=== PATIENT | female | born 1950 | race Caucasian/White ===

== ENCOUNTER → 2020-09-21 10:03 | Outpatient (CLI) | payer MEDICARE, SELFPAY ==
--- NOTE | ~2020-09-21 | MM_ITS ---
EXAMINATION: MM screening andreea BI w brett HISTORY: Screening TECHNIQUE: Craniocaudal and mediolateral oblique 3-D tomosynthesis images were obtained and synthetic 2-D images were generated. CAD analysis was submitted and interpreted. COMPARISON: Comparison to multiple prior studies sequentially, with oldest reviewed study dated 05/04. BREAST PARENCHYMAL COMPOSITION: There are scattered areas of fibroglandular density. FINDINGS: Bilateral breast asymmetries are stable. There is no evidence of suspicious mass, calcifica tion, or architectural distortion to suggest malignancy in either breast. There has been no suspiciou s interval change. IMPRESSION: 1. No mammographic evidence of malignancy. 2. Recommend routine screening mammography in one year. BI-RADS Category 2: Benign finding(s). Reviewed, dictated and finalized at location A. TEGIC BUYER
== END ==
PROVIDERS: Visit Provider Nurse Practitioner Obstetrics & Gynecology
DX: Z12.31 Encounter for screening mammogram for malignant neoplasm of breast (principal)
CPT/HCPCS: 77063; 77067

== ENCOUNTER → 2021-08-15 09:49 | Outpatient (CLI) | payer MEDICARE, SELFPAY ==
--- NOTE | ~2021-08-15 | XR_ITS ---
EXAMINATION: XR chest 2V DATE: 08/15/2021 10:03 INDICATION: Cough, unspecified. COVID-19 positive 10 days ago. TECHNIQUE: Frontal and lateral views of the chest were obtained. COMPARISON: Chest 2 views 01/29/2018 FINDINGS: There is mild scarring at the lung apices. No pleural effusion or pneumothorax. The heart s ize is normal. IMPRESSION: 1. Stable mild scarring at the lung apices. Reviewed, dictated and finalized at location B. ATOR EXAMINER AND ADJUSTER
== END ==
PROVIDERS: PCP Family Medicine; Visit Provider Physician Assistant Medical
DX: R05.9 Cough, unspecified (principal); R91.8 Other nonspecific abnormal finding of lung field
CPT/HCPCS: 71046

== ENCOUNTER 2022-08-17 16:47 | Emergency (ER) | payer MEDICARE, SELFPAY ==
--- NOTE | ~2022-08-17 | CT_ITS ---
EXAMINATION: CT brain wo con DATE: 08/17/2022 17:47 INDICATION: Fall with head injury TECHNIQUE: Computed tomography (CT) of the head was performed without intravenous contrast. Sagittal and coronal reconstructions were performed. Automated exposure control and iterative reconstruction t echnique were employed. The dose-length product was 529.67 mGy-cm. COMPARISON: head CT dated 07/21/2017 FINDINGS: No fracture. No acute intracranial hemorrhage, acute infarction or abnormal extra axial fluid collect ion. There is mild scattered white matter hypoattenuation consistent with chronic small vessel ischem ic disease. Ventricles are normal and symmetric. No mass/mass effect. The orbits, paranasal sinuses and mastoid air cells are normal. IMPRESSION: 1. No fracture or acute intracranial process. 2. Mild scattered white matter hypoattenuation consistent with chronic small vessel ischemic disease. Reviewed, dictated and finalized at location A. ITY ASSURANCE CLERK IMPRESSION: 1. No fracture or acute intracranial process. 2. Mild scattered white matter hypoattenuation consistent with chronic small ve ssel ischemic disease.
[2022-08-17 16:52] VITALS: BP 146/55; PULSE 62; RESP 18; TEMP 35.8; O2SAT 100
--- NOTE | 2022-08-17 17:14 | ED.WOUNDLAC ---
HPI - Wound/Laceration General Chief Complaint: Wound/Laceration Stated Complaint: chin laceration Time Seen by Provider: 08/17/22 16:55 History of Present Illness HPI narrative: Patient is a 71-year-old female here for evaluation of a laceration to her chin. Patient states that she was going down the steps carrying several items when she slipped on the bottom 3 steps. She fell forward and struck her chin against the ground and struck her knee. She did not lose consciousness. She takes a daily baby aspirin. Complaining of knee pain and a laceration to the inside of her lip and chin. She has been able to walk. Her last tetanus booster was over 10 years ago. Related Data Home Medications Medication Instructions Recorded Confirmed aspirin 81 mg tablet,delayed 81 mg PO DAILY 06/22/19 10/23/21 release metoprolol succinate 50 mg 50 mg PO DAILY 06/22/19 10/23/21 tablet,extended release 24 hr atorvastatin 10 mg tablet 40 mg PO DAILY 05/29/21 10/23/21 cholecalciferol (vitamin D3) 50 50 mcg PO DAILY 05/29/21 10/23/21 mcg (2,000 unit) tablet mecobalamin (vitamin B12) 1,000 1,000 mcg PO DAILY 05/29/21 10/23/21 mcg chewable tablet Allergies Allergy/AdvReac Type Severity Reaction Status Date / Time No Known Allergies Allergy Verified 08/17/22 16:55 Review of Systems Review of Systems: Gen: Denies fevers or chills Eyes: Denies eye pain or visual change ENT: Denies congestion Respiratory: Denies shortness of breath or cough CV: Denies chest pain or palpitations GI: Denies abdominal pain nausea, emesis or diarrhea : denies burning, urgency, frequency or hematuria Musculoskeletal: reports knee pain Neuro: Denies numbness, tingling, weakness or focal weakness Skin: Reports laceration to lip and chin Except as documented, all other systems reviewed and negative PMFSH Past Medical History Medical History Acute right flank pain Lab test negative for COVID-19 virus 08.22.20 UTI (urinary tract infection), bacterial Surgical History Surgical History H/O lateral meniscus repair of left knee History of appendectomy History of hysterectomy Family History Family History Father Diabetes mellitus Social History Social History Second hand tobacco smoke exposure: No Alcohol intake: current Alcohol use details: Occasional Substance use: never Substance use type: does not use Gender identity (if verbalized by the patient): Female Spiritual care concerns: No Agree to blood products: Yes Exam Narrative: APPEARANCE: Well appearing, no pain in distress, well-nourished. Head: Normocephalic and atraumatic. EYES: PERRLA/EOMI, conjunctivae clear NOSE: No nasal drainage EARS: External ear normal in appearance THROAT: Oropharynx is clear. Mucous membranes are moist. NECK: Supple. No adenopathy, no masses. RESPIRATORY: Airway patent, respirations nonlabored. Clear to auscultation bilaterally, no rales, rhonchi, wheezing. CARDIOVASCULAR: Regular rate and rhythm without murmurs, rubs, or gallops. ABDOMINAL: Normoactive bowel sounds. Soft, nontender, nondistended. No rebound tenderness or guarding. MUSCULOSKELETAL: No bony tenderness to palpation of either knee. No deformity. No overlying ecchymosis or laceration. Extremities are warm and well-perfused. Moves all extremities well. No edema. NEURO: Normal speech. No focal neurologic deficits. SKIN: Patient has a 3 cm linear laceration to [id number] chin just inferior to her lower lip. She has a laceration to the dry vermilion border of her mid lower lip. She has an irregular, v shaped laceration to the wet vermilion border of the lower lip that is about 2 cm in length. PSYCHIATRIC: Normal affect/mood. Course Vital Signs Vital sig
[2022-08-17] MEDS: LIDOCAINE, EPINEPHRINE, TETRACAINE VISCOUS SOLN 3 ML TOPICAL (18:13)
[2022-08-17] MEDS: TETANUS,DIPHTHERIA,AC PERTUSSIS ADULT (0.5 ML) BOOSTRIX IM (18:13)
== END 2022-08-17 18:42 | disposition home or self-care (01) ==
PROVIDERS: Emergency Provider Physician Assistant; PCP Family Medicine
DX: S01.81XA Laceration without foreign body of other part of head, initial encounter (principal); S01.511A Laceration without foreign body of lip, initial encounter; Z23 Encounter for immunization; Z87.440 Personal history of urinary (tract) infections; Z90.710 Acquired absence of both cervix and uterus; Z79.82 Long term (current) use of aspirin; W10.9XXA Fall (on) (from) unspecified stairs and steps, initial encounter
CPT/HCPCS: 12014; 70450; 90471; 90715; 99284

== ENCOUNTER → 2022-09-18 14:17 | Outpatient (CLI) | payer MEDICARE, SELFPAY ==
--- NOTE | ~2022-09-18 | MM_ITS ---
EXAMINATION: MM screening andreea BI w brett HISTORY: Screening mammogram TECHNIQUE: Craniocaudal and mediolateral oblique 3-D tomosynthesis images were obtained and synthetic 2-D images were generated. CAD analysis was submitted and interpreted. COMPARISON: September 21, 2020, June 20, 2017, August 25, 2015 bilateral screening mammogram exam inations BREAST PARENCHYMAL COMPOSITION: There are scattered areas of fibroglandular density. FINDINGS: Stable fibroglandular asymmetry and a few benign calcifications are again noted. There is no evidence of suspicious mass, calcification, or architectural distortion to suggest malig gil in either breast. There has been no suspicious interval change. IMPRESSION: 1. No mammographic evidence of malignancy. 2. Recommend routine screening mammography in one year. BI-RADS Category 2: Benign finding(s). Prescription for acute hypertrophy posterior features and Reviewed, dictated and finalized at location A. VISION AND RADIO REPAIRER IMPRESSION: 1. No mammographic evidence of malignancy. 2. Recommend routine screening mammography in one year. BI-RADS Category 2: Benign finding(s). Prescription for acute hypertrophy poste rior features and
== END ==
PROVIDERS: PCP Family Medicine; Visit Provider Nurse Practitioner Obstetrics & Gynecology
DX: Z12.31 Encounter for screening mammogram for malignant neoplasm of breast (principal)
CPT/HCPCS: 77063; 77067

== ENCOUNTER 2023-08-08 17:03 | Emergency (ER) | payer MEDICARE, SELFPAY ==
[2023-08-08 17:14] VITALS: BP 115/59; PULSE 96; RESP 18; TEMP 36.6; O2SAT 100
--- NOTE | 2023-08-08 17:37 | ED.URI ---
HPI - URI/Sore Throat General Chief Complaint: Upper Respiratory Infection Stated Complaint: Cough/SOB Source: patient Mode of arrival: ambulatory Limitations: no limitations History of Present Illness HPI Narrative: 72 y/o female presented for c/o cough and nasal congestion for 2-3 weeks. Cough is productive of clear sputum. Taking Mucinex for symptoms. Endorses occasional chest tightness with deep breaths. Denies wheezing, nausea, vomiting, diarrhea, fevers or chills. Tested negative for COVID 2 days ago. Pt is scheduled with pcp in 4 days. Related Data Home Medications Medication Instructions Recorded Confirmed aspirin 81 mg tablet,delayed 81 mg PO DAILY 06/22/19 08/08/23 release metoprolol succinate 50 mg 50 mg PO DAILY 06/22/19 08/08/23 tablet,extended release 24 hr cholecalciferol (vitamin D3) 50 50 mcg PO DAILY 05/29/21 08/08/23 mcg (2,000 unit) tablet atorvastatin 40 mg tablet 40 mg PO DAILY 08/23/22 08/08/23 meloxicam 15 mg tablet 15 mg PO DIRECTED 12/13/22 08/08/23 tramadol 50 mg tablet 50 mg PO DIRECTED 12/13/22 08/08/23 Allergies Allergy/AdvReac Type Severity Reaction Status Date / Time No Known Allergies Allergy Verified 08/08/23 17:23 Review of Systems Review of Systems: CONSTITUTIONAL: Denies body aches, fever, chills, or sweats. EYES: Denies visual changes, redness, or discharge. ENT: Reports rhinorrhea, congestion, Denies sore throat, or otalgia. CARDIOVASCULAR: Denies chest pain, palpitations, or edema. RESPIRATORY: Reports cough, denies wheezing. SKIN: Denies rash, itching, or wounds. MUSCULOSKELETAL: Denies back pain, joint pain, or myalgia. NEUROLOGIC: Denies headache, numbness, tingling, or weakness. All systems reviewed & are unremarkable except as noted in HPI and below PMFSH Past Medical History Medical History Acute right flank pain Lab test negative for COVID-19 virus 1.19.21 UTI (urinary tract infection), bacterial Surgical History Surgical History H/O lateral meniscus repair of left knee History of appendectomy History of hysterectomy Family History Family History Father Diabetes mellitus Social History Social History Smoking status: Never smoker Second hand tobacco smoke exposure: No Alcohol intake: current Alcohol use details: Occasional Substance use: never Substance use type: does not use Lack of Transportation: No Lack of Food: Never True Current Housing: I Have Housing Concerned About Future Housing: No Difficulty Paying Gas/Electric Bills: No Difficulty Paying for Meds: No Currently Unemployed: No Education: Associate Degree Difficulty w/ Childcare or Family Care: No Living arrangements: with family Occupation/Education: retired Gender identity (if verbalized by the patient): Female Spiritual care concerns: No Agree to blood products: Yes Comments At time of signature, I have reviewed and agree with nursing past medical, surgical, social and family history unless otherwise noted. Please see nursing chart for further information. There is no relevant family history pertinent to the presenting complaint Exam Narrative: GENERAL: Well-appearing, in no acute distress. EYES: EOMI. No redness or drainage. Conjunctivae normal. ENT: Mucous membranes pink and moist. No rhinorrhea. TMs normal bilaterally. Throat normal. Uvula midline. CHEST: No respiratory distress. lungs clear to all [place]. Frequent languages and literature instructor cough. HEART: Regular rate and rhythm. No murmur appreciated. ABDOMEN: Soft, nontender, nondistended, normal active bowel sounds. SKIN: Warm, dry, no rash. Capillary refill normal. Normal skin turgor. NEURO: Alert and oriented x3. Gait steady. PSYCH: Normal affect.
== END 2023-08-08 17:45 | disposition home or self-care (01) ==
PROVIDERS: Emergency Provider Nurse Practitioner Family; PCP Family Medicine
DX: J40 Bronchitis, not specified as acute or chronic (principal); Z79.82 Long term (current) use of aspirin; Z79.899 Other long term (current) drug therapy; Z79.1 Long term (current) use of non-steroidal anti-inflammatories (NSAID)
CPT/HCPCS: 99213; G0463

== ENCOUNTER 2024-03-19 11:06 | Outpatient (CLI) | payer MEDICARE, SELFPAY ==
--- NOTE | ~2024-03-19 | XR_ITS ---
XR knee LT 3V Ordering provider: BEATRIZ ClarkC History: . M25.562 - Pain in left knee X 2 YRS AFTER FALL . Comparison: None. FINDINGS: BONES: No acute fracture or dislocation. JOINT SPACES: Normal. SOFT TISSUES: Normal. IMPRESSION: No acute osseous abnormality left knee. Reviewed, dictated and finalized at location A.
== END 2024-03-19 11:07 | disposition home or self-care (01) ==
PROVIDERS: PCP Family Medicine; Visit Provider Nurse Practitioner Family
DX: M25.562 Pain in left knee (principal)
CPT/HCPCS: 73562

== ENCOUNTER 2024-08-09 10:07 | Outpatient (CLI) | payer MEDICARE, SELFPAY ==
--- NOTE | 2024-08-09 10:16 | ECG_ITS ---
Test Date: 2024-08-09 10:24:13 Measurements Intervals [place] Rate: 75 P: 41 RI: 182 QRS: -34 QRSD: 122 T: 58 QT: 399 QTc: 446 Interpretive Statements SINUS RHYTHM MARKED LEFT AXIS DEVIATION [QRS AXIS < -30] MODERATE INTRAVENTRICULAR CONDUCTION DELAY [105+ ms QRS DURATION, 80+ ms Q/S IN V1/V2, NO Q AND 60+ ms R IN I/aVL/V5/V6] VOLTAGE CRITERIA FOR LVH [MEETS CRITERIA IN ONE OF: R(aVL), S(V1), R(V5), R(V5/V6)+S(V1)] No previous ECG available for comparison Electronically Signed On 08-11-2024 16:56:48 STEAM STATION SUPERVISOR by Melisa Pascal M.D.
== END 2024-08-09 10:08 | disposition home or self-care (01) ==
PROVIDERS: PCP Family Medicine; Visit Provider Orthopaedic Surgery
DX: R94.31 Abnormal electrocardiogram [ECG] [EKG] (principal); E78.2 Mixed hyperlipidemia; Q24.5 Malformation of coronary vessels; I25.118 Atherosclerotic heart disease of native coronary artery with other forms of angina pectoris
CPT/HCPCS: 93005

== ENCOUNTER 2024-08-16 00:33 | Day surgery (SDC) | payer MEDICARE, SELFPAY ==
[2024-08-02 09:59] VITALS: BMI 25.9
--- NOTE | 2024-08-02 10:11 | PC.NURSE ---
Report to the Outpatient Waiting Room, entrance under the green pavilion located off [facility], at time __1:00pm on date __08/16/24 . Planned Procedure Time: 3:00pm .? Time changes happen often and if your time is changed the preop area will call you the afternoon before. - You and your visitor will be asked to self-screen and do not enter if you have any COVID symptoms. Please call surgeon if you need to reschedule. - A mask is optional within the hospital at this time. Patients may have clear liquids (water, carbonated beverages, clear teas, apple juice) until 3 hours prior to surgery with a maximum of 20 ounces. - No food from midnight until time of surgery and no smoking. This includes no chewing gum, candy or mints. (1200pm) Take only the following medications with a SIP of water on the morning of surgery: ____Metoprolol & Escitalopram DO NOT STOP ANY OF YOUR OTHER PRESCRIPTION MEDICATIONS PRIOR TO SURGERY EXCEPT THE FOLLOWING Medications to discontinue per physician ___Hold all vitamins, supplements, Herbs, Probiotics, Aspirin and Meloxicam for [address] Saul ( pt wants to hold all together so she dont forget to stop them) Date to take last dose____08/08/24 Please no make-up, nail argentine, hairspray, perfume, deodorant, or body powder the day of surgery.? No jewelry (including any body piercings) or valuables the day of surgery, leave them at home.? Please take a shower or bath the night before, or the morning of, surgery with an antibacterial soap.? Wear comfortable, loose fitting clothing.? - Jewelry must be removed prior to entering the operating room.? Rings and piercings that are not removed may be cut off. - The hospital will not accept responsibility for valuables.? - Please leave all valuables, including medications, at home the day of surgery. If you are going home after surgery, a licensed line haul truck driver must drive you home.? - NO public transportation without another adult if you receive anesthesia. - We recommend that an adult stay with you for 24 hours following discharge. - We also recommend that you do not drive, make important decision, drink alcoholic beverages, or take any drugs that were not prescribed by your health care provider for at least 24 hours after your discharge time. Follow any additional instructions given to you from your surgeon. Telephone instructions given to __Patient & and asked if any additional questions and then verbalized understanding. Patient advised to call surgeon office or pre surgery nurse liaison [phone] if any additional questions.
[2024-08-16] VITALS (7 sets, daily range): BP systolic 112–148; BP diastolic 46–79; PULSE 67–75; RESP 14–20; TEMP 36.2–36.4; O2SAT 97–100
[2024-08-16] MEDS: ACETAMINOPHEN 500 MG TABLET 1000 MG PO (13:30)
--- NOTE | 2024-08-16 14:25 | P.PNAN_ITS ---
Anes - Initial Pre Proc Eval Procedure: Operation Date: 08/16/24 15:00 Proposed Procedures p Left Knee Arthroscopic Partial Medial and Lateral Meniscectomy - Markie Saul MD Date/Time: 08/16/24 14:25 Surgeon: Markie Saul MD Pre Op Diagnosis: Left Knee Medial and Lateral Meniscus Tear Patient Data Age: 73 Gender: F Height: 1.57 m Weight: 61.8 kg Last Vital Signs Temp 97.6 F 08/16/24 13:14 Pulse 69 08/16/24 13:14 Resp 18 08/16/24 13:14 BP 148/57 H 08/16/24 13:14 Pulse Ox 100 08/16/24 13:14 O2 Del Method Room Air 08/16/24 13:14 Allergies Allergy/AdvReac Type Severity Reaction Status Date / Time No Known Allergies Allergy Verified 08/16/24 13:15 Home Medications ?Medication ?Instructions ?Recorded ?Confirmed ?Type aspirin 81 mg tablet,delayed 81 mg PO DAILY 06/22/19 08/16/24 History release metoprolol succinate 50 mg 50 mg PO DAILY 06/22/19 08/16/24 History tablet,extended release 24 hr cholecalciferol (vitamin D3) 50 50 mcg PO DAILY 05/29/21 08/16/24 History mcg (2,000 unit) tablet meloxicam 15 mg tablet 15 mg PO DIRECTED 12/13/22 08/16/24 History albuterol sulfate 90 mcg/actuation 2 inh inhalation QID PRN shortness 08/08/23 08/11/24 Rx aerosol inhaler of breath or wheezing #8.5 grams atorvastatin 80 mg tablet 80 mg PO QPM 11/05/23 08/16/24 History estradiol 0.5 mg tablet 0.5 mg PO DAILY 11/05/23 08/16/24 History escitalopram oxalate 20 mg tablet 20 mg PO DAILY #90 tabs 01/15/24 08/16/24 Rx omeprazole 40 mg capsule,delayed 40 mg PO DAILY #90 caps 07/15/24 08/16/24 Rx release hydrocodone 5 mg-acetaminophen 325 1 - 2 tablet PO Q4-6H PRN pain 7 08/16/24 Rx mg tablet days #30 tabs Patient hx anesthesia problems: none Family hx anesthesia problems: none Results Review: All pre-operative results and documents have been reviewed as part of the pre- operative evaluation. FOR[facility]LY [facility] Past Medical History Medical History Lab test negative for COVID-19 virus 1.19.21 Acute right flank pain UTI (urinary tract infection), bacterial Surgical History Surgical History H/O lateral meniscus repair of left knee History of hysterectomy History of appendectomy Family History Family History Father Diabetes mellitus Social History Social History (Reviewed 08/16/24 @ 14: by Ed Alcaraz DO) Smoking status: Never smoker Second hand tobacco smoke exposure: No Alcohol intake: current Alcohol use details: Occasionally Substance use: never Substance use type: does not use Do You Feel Safe in your Home?: Yes Lack of Transportation: No Lack of Food: Never True Current Housing: I Have Housing Concerned About Future Housing: No Difficulty Paying Gas/Electric Bills: No Difficulty Paying for Meds: No Currently Unemployed: No Education: Associate Degree Difficulty w/ Childcare or Family Care: No Living arrangements: with family Additional living arrangements comments: Occupation/Education: retired Gender identity (if verbalized by the patient): Female Spiritual care concerns: No Agree to blood products: Yes Anes - Eval Final PreProcedure Day of Procedure 08/16/24 14:25 Patient weight: normal Heart: regular rate and rhythm Lungs: clear to auscultation Airway: Mallampati scale class II Neurological: alert and oriented Last oral intake: >/= 8 hours ASA classification: II Emergent: no Anesthetic plan: proceed Anesthesia type and monitoring: general LMA and standard monitoring Results Review: All pre-operative results and documents have been reviewed as part of the pre- operative evaluation. Hyperlipidemia, hx of PVCs, on daily metoprolol taken this am. Pt w questions about periop brain health, all questions answered to the best of my ability. Informed Consent: The patient's anesthetic plan and its attendant risks and benefits were discussed with the patient/family/POA. Questions were solicited and answers provided to the satisfaction of the patient/family/POA.
--- NOTE | 2024-08-16 15:03 | WPDHPUPDATE1 ---
History and Physical Update Update Date/Time: 08/16/24 15:03 History and Physical has been reviewed, including an updated exam of the patient. There are NO changes in the patient's condition. Risks, benefits, and alternatives have been discussed and questions answered. Patient agrees to proceed with procedure.
[2024-08-16] MEDS: ceFAZolin 2 GM/D5W 50 ML 2 GM/50 ML BAG IVPB (15:10)
[2024-08-16] MEDS: BUPIVACAINE/EPINEPHRINE 0.5% 30 ML VIAL INFILTRATE (15:26)
[2024-08-16] MEDS: LACTATED RINGERS 1,000 ML 30 ML IV CONT (15:53)
--- NOTE | 2024-08-16 16:48 | W.PM.PROC2 ---
Procedure Note - Detailed Date of Procedure 08/16/24 Pre-op Diagnosis Left Knee Medial and Lateral Meniscus Tear Post-op Diagnosis Other (Left knee medial meniscus tear) Procedure Performed Arthroscopic partial medial meniscectomy, left knee. Surgeon Markie Saul MD Anesthesia General Findings Complex medial tear in the posterior horn. Subtotal meniscectomy. Good stable rim achieved. The lateral meniscus and compartment appeared normal. The ACL was normal. Medial femur chondromalacia grade 2, medial tibia grade 4 at the medial margin under the meniscus. Lateral femur chondromalacia grade 0, lateral tibia grade 1. Patellar grade 1, trochlea grade 0. Description of Procedure The patient was identified and the surgical site confirmed and signed in the preoperative holding area. Antibiotics were started per protocol, and the patient was brought to the operative room and transferred to the OR table. A general anesthetic was administered. Supine position with the operative lower extremity position in the leg lundberg after placement of a well padded tourniquet. The leg support was lowered and the contralateral limb was supported with a soft bolster. The knee was prepped and draped in the usual sterile fashion. A time-out was performed. The portal sites were marked and infiltrated with 0.5% Marcaine 20 mL. The limb was exsanguinated and the tourniquet inflated to 300 mL Hg. Standard inferolateral and inferomedial portals were established. Inflow was obtained with the saline pump. The camera was introduced. Diagnostic inspection of the joint was accomplished. The meniscus was debrided with the arthroscopic shaver and punches until stable. The radiofrequency probe was also used for further d?bridement. The arthroscopic instruments were removed. The tourniquet released and wounds closed with subcutaneous 4-0 Monocryl absorbable suture. Steri strips and a sterile dressing were applied. A light elastic wrap was placed. The patient was extubated and brought to the recovery room in stable condition. Estimated Blood Loss 5 Drains No Complications No immediate complications Condition Stable Disposition PACU [facility] Billing Surgery - Charge Forward: Surgery Billing
== END 2024-08-16 17:25 | disposition home or self-care (01) ==
PROVIDERS: PCP Family Medicine; Visit Provider Orthopaedic Surgery
PROC: (CPT 29870; principal; 2024-08-16 15:00)
DX: S83.232A Complex tear of medial meniscus, current injury, left knee, initial encounter (principal); M94.262 Chondromalacia, left knee; X58.XXXA Exposure to other specified factors, initial encounter; Z98.890 Other specified postprocedural states; Z79.82 Long term (current) use of aspirin; Z79.51 Long term (current) use of inhaled steroids; Z79.891 Long term (current) use of opiate analgesic
CPT/HCPCS: 29881; A9270; J0690; J1885; J3010; J7120

== ENCOUNTER 2024-09-13 19:10 | Emergency (ER) | payer MEDICARE, SELFPAY ==
--- NOTE | ~2024-09-13 | CT_ITS ---
History: Syncope PROCEDURE: CT head without contrast. COMPARISON: 08/17/2022 TECHNIQUE: Axial imaging of the head performed from the skull base to the vertex without IV contrast. Sagittal a nd coronal reformations obtained. DLP: 605 mGy-cm FINDINGS: The ventricles are normal in size, shape and position. There is no mass, mass effect or midline shift. There is no abnormal extra-axial fluid collection or intracranial hemorrhage. Small air-fluid level within the right maxillary sinus. Mucoperiosteal thickening within the bilatera l ethmoid sinuses. Remaining paranasal sinuses are unremarkable. The mastoid air cells are well aerated. No acute displaced fractures within the overlying cranium. Impression: No acute intracranial hemorrhage or suspicious mass effect. Inflammatory sinus disease Reviewed, dictated and finalized at location A. DER AND CHIEF EXECUTIVE OFFICER Impression: No acute intracranial hemorrhage or suspicious mass effect. Inflammatory sinus disease
--- NOTE | ~2024-09-13 | CT_ITS ---
History: Syncope PROCEDURE: CT cervical spine and facial bones without intravenous contrast. COMPARISON: None TECHNIQUE: Multiple contiguous axial images of the cervical spine and facial bones were performed without the ad ministration of intravenous contrast. DLP: 157 mGy-cm FINDINGS: Preservation of the normal curvature of the cervical spine is identified. No acute fractures are present. Degenerative disease is present, with osteophyte formation, disc space narrowing, and endplate change s. Biapical scarring. No soft tissue abnormality is present. The airway is unremarkable. Impression: Degenerative disease without acute fracture. Reviewed, dictated and finalized at location A. H CLEANER Impression: Degenerative disease without acute fracture.
--- NOTE | ~2024-09-13 | XR_ITS ---
CHEST RADIOGRAPH, PA AND LATERAL CLINICAL HISTORY: syncope, COUGH 2 WEEKS . COMPARISON: 08/15/2021 TECHNIQUE: PA and lateral views of the chest. FINDINGS The cardiomediastinal silhouette is unremarkable. The lungs are clear. Visualized osseous structures and soft tissues are unremarkable. IMPRESSION: No focal infiltrate or effusion. Reviewed, dictated and finalized at location A. EWATER PROJECT ENGINEER
--- OUTSIDE RECORDS SUMMARY | 2024-09-13 19:13 | XMS_ITS | Referral Summary ---
Author Organization [facility] Address [address] [place] [address] Care Team Providers Care Lead Caster Name Role Phone Adela Zaman MD Primary Care Provider + Markie Saul MD Unavailable [phone] Encounters Date Type Department Care Team Description 07/16/2024 11:15 AM EVENT PLANNING INTERN Office Visit [facility] Cardiology [address] [place] [address] Melisa Pascal MD Coronary artery disease involving chipewwa coronary artery of chipewwa heart without angina pectoris (Primary Dx); Palpitations; Atrial paroxysmal tachycardia (HCC); Benign hypertension; Mixed hyperlipidemia from Last 3 Months Allergies No known active allergies Medications cholecalciferol (VITAMIN D-3) 2,000 unit capsule Take 1 capsule (2,000 Units total) by mouth daily Active omeprazole (PriLOSEC) 40 mg capsule Take 1 capsule (40 mg total) by mouth daily Active escitalopram (LEXAPRO) 20 mg tablet Take 1 tablet (20 mg total) by mouth daily 04/14/2020 Active estradioL (ESTRACE) 0.5 mg tablet Take 1 tablet (0.5 mg total) by mouth daily 01/11/2021 Active aspirin (Adult Low Dose Aspirin) 81 mg enteric coated tablet Take 1 tablet (81 mg total) by mouth daily 30 tablet 11/06/2022 Active atorvastatin (LIPITOR) 80 mg tablet TAKE 1 TABLET BY MOUTH EVERY DAY 90 tablet 3 10/06/2023 Active traMADoL (ULTRAM) 50 mg tablet Take 1 tablet (50 mg total) by mouth every 6 (six) hours as needed for pain 30 tablet 01/14/2024 Active meloxicam (MOBIC) 15 mg tablet TAKE 1 TABLET (15 MG TOTAL) BY MOUTH DAILY. 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 Subacromial bursitis of right shoulder joint Osteoarthritis of knee 09/23/2016 PVC's (premature ventricular contractions) 07/03 Overview (11/07/2016): PVC's (premature ventricular contractions) Atrial paroxysmal tachycardia 07/03/2016 Overview (11/07/2016): Paroxysmal atrial tachycardia Coronary artery disease invo lving chipewwa coronary artery of chipe[place]a heart without angina pectoris 11/02/2015 Overview (11/08/2016): Coronary artery disease involving chipewwa coronary artery of chipewwa heart with other form of angina pectoris Ischemic chest pain (CMS/HCC) 10/02/2015 Overview (11/07/2016): Ischemic chest pain Dyspnea on exertion 10/02/2015 Overview (11/08/2016): STEWART (dyspnea on exertion) Abnormal cardiovascular stress test 10/02/2015 Overview (11/08/2016): Abnormal stress test Palpitations 10/02/2015 Overview (11/08/2016): Heart palpitations Benign hypertension 10/02/2015 Overview (11/08/2016): HTN (hypertension), benign Rotator cuff syndrome 03/31/2015 Resolved Problems Problem Noted Date Diagnosed Date Resolved Date Myocardial bridge of coronary artery 11/02/2015 11/06/2022 Overview (11/07/2016): Coronary-myocardial bridge Dyslipidemia 10/02/2015 04/12/2022 Overview (11/08/2016): Dyslipidemia Social History Tobacco Use Types Packs/Day Years Used Date Smoking Tobacco: Never Passive Smoke Exposure: Never Smokeless Tobacco: Never Tobacco Cessation:Counseling Given: Not Answered Alcohol Use Standard Drinks/Week Comments Yes 0 (1 standard drink = 0.6 oz pur e alcohol) Comments Unknown Sex and Gender Information Value Date Recorded Sex Assigned at Not on file Legal Sex Female 4:00 AM EVENT PLANNING INTERN Gender Identity Female 12/29/2019 12:53 PM CDT Sexual Orientation Straight 12/29/2019 12 :53 PM CDT Last Filed Vital Signs Vital Sign Reading Time Taken Comments Blood Pressure 134/60 07/16/2024 11:01 AM EVENT PLANNING INTERN Pulse 59 07/16/2024 11:01 AM EVENT PLANNING INTERN Temperature - - Respiratory Rate 16 10/16/2021 2:32 PM CDT Oxygen Saturation 99% 07/16/2024 11:01 AM EVENT PLANNING INTERN Inhaled Oxygen Concentration - - Weight 64 kg (141 lb) 07/16/2024 11:01 AM EVENT PLANNING INTERN Height 157.5 cm (5' 2 ) 07/16/2024 11:01 AM EVENT PLANNING INTERN Body Mass Index 25.79 07/16/2024 11:01 AM EVENT PLANNING INTERN Plan of Treatment Not on file Insurance [facility] MDCR HMO REF [facility] Address: [address] [address] [place] [address] [facility]ICARE [facility] Address: [address] [address] [place] [address] MEDICARE [facility] Address: [address] [address] [place] [address] Care Teams Lead Caster Relationship Specialty Start Date End Date Adela Zaman MD PCP - General 11/01/16 Markie Saul MD [address] [address] Referring Physician Orthopedic Surgery 07/16/24
--- OUTSIDE RECORDS SUMMARY | 2024-09-13 19:13 | XMS_ITS | Clinical Summary ---
Author Organization [facility] Address [address] [place] [address] Care Team Providers Care Azure Architect Name Role Phone Adela Zaman MD Primary Care Provider + Markie Saul MD Unavailable [phone] Allergies No known active allergies Medications cholecalciferol [...] atrial tachycardia Coronary artery disease invo lving eklutna coronary artery of [place] heart without angina pectoris 11/02/2015 Overview (11/08/2016): Coronary artery disease involving [place] coronary artery of [place] heart with other form of angina pectoris Ischemic chest pain ([facility]) 10/02/2015 Overview (11/07/2016): Ischemic chest pain Dyspnea [...] bridge Dyslipidemia 10/02/2015 04/12/2022 Overview (11/08/2016): Dyslipidemia Encounters Date Type Department Care Team Description 07/16/2024 11:15 AM WOODWORKING BELT SANDER Office Visit [facility] Cardiology [address] [place] [address] Melisa Pascal MD Coronary artery disease involving e[place] coronary artery of ekl[place] heart without angina pectoris (Primary Dx); Palpitations; Atrial paroxysmal tachycardia (HCC); Benign hypertension; Mixed hyperlipidemia from Last 3 Months Surgical History Surgery Date Site/Laterality Comments CARDIAC CATHETERIZATION Medical History Medical History Date Comments Coronary artery disease Hypertension HL (hearing loss) Family History Medical History Relation Name Comments Other Father 2 Unknown; Cause of : Unknown Other Mother 2 Unknown; Cause of : Unknown Relation Name Status Comments Father 1 (Age 81) Father 2 Mother 1 (Age 81) Mother 2 Social History Tobacco Use Types Packs/Day Years Used Date Smoking Tobacco: Never Passive Smoke Exposure: Never Smokeless Tobacco: Never Tobacco Cessation:Counseling Given: Not Answered Alcohol Use Standard Drinks/Week Comments Yes 0 (1 standard drink = 0.6 oz pur e alcohol) Comments Unknown Sex and Gender Information Value Date Recorded Sex Assigned at Not on file Legal Sex Female 4:00 AM WOODWORKING BELT SANDER Gender Identity Female 12/29/2019 12:53 PM CDT Sexual Orientation Straight 12/29/2019 12 :53 PM CDT Obstetrics History Last Filed Vital Signs Vital Sign Reading Time Taken Comments Blood Pressure 134/60 07/16/2024 11:01 AM WOODWORKING BELT SANDER Pulse 59 07/16/2024 11:01 AM WOODWORKING BELT SANDER Temperature - - Respiratory Rate 16 10/16/2021 2:32 PM CDT Oxygen Saturation 99% 07/16/2024 11:01 AM WOODWORKING BELT SANDER Inhaled Oxygen Concentration - - Weight 64 kg (141 lb) 07/16/2024 11:01 AM WOODWORKING BELT SANDER Height 157.5 cm (5' 2 ) 07/16/2024 11:01 AM WOODWORKING BELT SANDER Body Mass Index 25.79 07/16/2024 11:01 AM WOODWORKING BELT SANDER Plan of Treatment Health Maintenance Due Date Last Done Comments Colon Cancer Screening-Colonoscopy 1950 Depression Screening 1950 Fall Risk Assessment 1950 Hepatitis C Screening 1950 Osteoporosis Screening-Bone Density Scan 1950 Hepatitis B Screening 10/29/1967 Zoster Vaccine (1 of 2) 10/29/1999 DTaP/Tdap/Td Vaccine (1 - Tdap) 02/17/2001 1 Well Visit 65+ 2014 Pneumococcal vaccine 65+ (2 of 2 - PPSV23 or PCV20) 10/23/2022 10/23/2021 Breast Cancer Screening-Mammogram 09/18/2023 023 Covid-19 Vaccine (5 - 2023-2 5 season) 2024 04/15/2022, 05/26/2021, 10/10/2020, Additional history exists Influenza Vaccine Completed 05/12/2024, , 05/26/2021, Additional history exists Insurance [facility] MDCR HMO REF [facility] Address: [address] [address] MEDICARE [facility] Address: [address] [address] [facility] Address: [facility] [address] [place] [address] Care Teams Azure Architect Relationship Specialty Start Date End Date Adela Zaman MD PCP - General 11/01/16 Markie Saul MD [address] [address] Referring Physician Orthopedic Surgery 07/16/24
--- OUTSIDE RECORDS SUMMARY | 2024-09-13 19:13 | XMS_ITS | Encounter Summary ---
Author Organization [facility] Address [address] [place] [address] Care Team Providers Care Director Of Real Estate Name Role Phone Adela Zaman MD Primary Care Provider + Adela Zaman MD Primary Care Provider + Markie Saul MD Unavailable [phone] Encounter Details Date Type Department Care Team (Late st Contact Info) Description 10/18/2016 Orders Only [facility] ProviderKendra MD [address] [place] [id number] Social History Tobacco Use Types Packs/Day Years Used Date Smoking Tobacco: Never Alcohol Use Standard Drinks/Week Comments Yes 0 (1 standard drink = 0.6 oz pur e alcohol) Comments Unknown Sex and Gender Information Value Date Recorded Sex Assigned at Not on file Legal Sex Female 4:00 AM COLLECTIONS CLERK Gender Identity Female 12/29/2019 12:53 PM CDT Sexual Orientation Straight 12/29/2019 12 :53 PM CDT documented as of this encounter Plan of Treatment Not on file documented as of this encounter Procedures Procedure Name Priority Date/Time Associated Diagnosis Comments CARDIOLOGY REPORT 10/18/2016 documented in this encounter Results * CARDIOLOGY REPORT (10/18/2016) Anatomical Region Laterality Modality Other Narrative 10/18/2016 Ordered by an unspecified provider. Historical Provider [facility] Final Result documented in this encounter Visit Diagnoses Not on filedocumented in this encounter Care Teams Director Of Real Estate Relationship Specialty Start Date End Date Adela Zaman MD PCP - General 11/01/16 Adela Zaman MD PCP - General 09/23/16 10/31/16 Markie Saul MD [address] [address] Referring Physician Orthopedic Surgery 07/16/24 documented as of this encounter
--- OUTSIDE RECORDS SUMMARY | 2024-09-13 19:13 | XMS_ITS | Data Portability ---
Author Organization [facility] Address [address] [place] [address] [address] Care Team Providers Care Social Media Manager Name Role Phone JOHNATHAN SALDANA Primary Care Provider Assessment Encounter Date Assessment Date Assessment LastModified by Organization Details LastModified Time 11/26/2021 11/26/2021 Annual gynecological exam performed. Patient will come back in a year unless there are new symptoms. Not available 11/26/2021 11:35:47 Plan of Treatment Reminders Order Date Submit Date Provider Last Modified By Organization Details Last Modified Time Details Appointments None recorded. Lab None recorded. Referral None recorded. Procedures None recorded. Surgeries None recorded. Imaging MAMMO, screening, bilateral 2019 020 [facility], [address] [place] [address], [place], [address], 1 12:24:30 Medication Orders estradiol 0.5 mg tablet 2019 020 [id number], [address] [place], [address], 0 13:24:38 estradiol 0.5 mg tablet 2021 022 [id number], [address] [place], [address], 2 11:50:28 estradiol 0.5 mg tablet 2022 023 [id number], [address] [place], [address], 3 09:48:13 Patient TargetsNo targets recorded. Patient Instructions Encounter Date Encounter Id Patient Instructions Last Modified By Organization Details Last Modified Time 06/28/2020 [id number] [email or web address] Not available 13:19:20 Reason for Referral None Reported. Results Created Date Observation Date Name Description Value Unit Range Abnormal Flag Note LastModifiedBy Organization Detail LastModifiedTime 09/21/19 21 09/21/2020 MAMMO , scree marcell, bilat eral No observ ation record ed. [facility] [address], [place], [address], 09/26/2020 13:08:17 09/18/19 23 09/18/2022 MAMMO , scree marcell, bilat eral No observ ation record ed. [email or web address] [facility] [address], [place], [address], 09/23/2022 12:22:04 Result Notes None recorded. Problems Name Problem SNOMED Code Status Onset Date Resolution Date Notes Provider Name and Address Organization Details Recorded Time Screenin g for malignan t neoplasm of rectum Completed 201611/01/2021 Encounter for screening for malignant neoplasm of rectum;Re corded Elsewhere : No Locati on: [facility] So urce: EHR Chron ic: N Practic e ID: 0001 Bill able Time: 05:15:00 PM Monica Lyles [facility] 2 09:32:36 Menopaus e Completed 201811/01/2021 Postmenop ausal status;Re corded Elsewhere : No Locati on: [facility] So urce: EHR Chron ic: N Practic e ID: 0001 Bill able Time: 04:00:00 PM Monica Lyles [facility] 2 09:32:36 Screenin g for malignan t neoplasm of cervix Completed 201711/01/2021 Screening for malignant neoplasms of the cervix;Re corded Elsewhere : No Locati on: [facility] So urce: EHR Chron ic: N Practic e ID: 0001 Bill able Time: 08:30:00 AM Monica Lyles [facility] [place] 2 09:32:36 Abnormal weight gain [id number] Completed 201611/01/2021 Abnormal weight gain;Filemon rded Elsewhere : No Locati on: [facility] So urce: EHR Chron ic: N Practic e ID: 0001 Bill able Time: 05:15:00 PM Monica Lyles [facility] [place] [facility] 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 2 09:32:36 Adult health examinat ion Completed 201311/01/2021 Routine Medical Exam;Filemon rded Elsewhere : No Locati on: [facility] So urce: EHR Chron ic: N Practic e ID: 0001 Bill able Time: 05:45:00 PM Monica Lyles [facility] [place] [facility] [address] 09:32:[address] Concept Completed 201711/01/2021 Encntr for certified alcohol counselor exam (general) (routine) w/o abn findings; Recorded Elsewhere : No Locati on: [facility] So urce: EHR Chron ic: N Practic e ID: [id number] Bill able Time: 01:00:00 PM Monica Lyles [facility] [place] [facility] 2 09:32:36 Blood leukocyt e number above referenc e range [id number] Completed 201711/01/2021 Elevated white blood cell count, unspecifi ed;Record ed Elsewhere : No Locati on: [facility] So urce: EHR Chron ic: N Practic e ID: 0001 Bill able Time: 01:00:00 PM Moinca lau [facility] 2 09:32:36 Microsco pic hematuri a [id number] Completed 201411/01/2021 Other microscop ic hematuria ;Practice ID: 0001 Monica lau [facility] 2 09:32:36 Evaluati on finding Completed 201411/01/2021 Hematuria , unspecifi ed;Practi ce ID: [id number] Monica Lyles [facility] [address] 09:32:[address] Concept Completed 201711/01/2021 Encounter for general adult medical exam w abnormal findings; Practice ID: [id number] Monica Lyles [facility] 2 09:32:36 Urinary tract infectio us disease [id number] Completed 201811/01/2021 Urinary tract infection , site not specified ;Practice ID: 0001 Monica Lyles [facility] 2 09:32:36 Body mass index 25-29 - overweig ht [id number] Completed 201711/01/2021 Body mass index (BMI) 27.0-27.9 , adult;Rec orded Elsewhere : No Locati on: [facility] So urce: EHR Chron ic: N Practic e ID: 0001 Bill able Time: 01:00:00 PM Monica lau [facility] 2 09:32:36 Notes:Some problems listed i n Documents: #[id number], #[id number] could not be added to this patient's chart. Please review these documents and add these problems to the patient's chart manually as needed. Problem Notes None recorded. Procedures Surgical History Date Name Laterality Status Provider Name and Address Organization Details Recorded Time 3 Date of Last Mammogram completed Karen Carr [facility] 02/11/2023 09:29:18 Imaging Results Imaging Date Name Status LastModified by Organiz ation Details LastModified Time 09/21/2020 MAMMO, screening, bilateral active [facility] [address], [place], [address], 09/26/2020 13:08:17 09/18/2022 MAMMO, screening, bilateral completed [email or web address] [facility] [address], [place], [address], 09/23/2022 12:22:04 Procedure Notes None recorded. Medical Equipment None Reported. Allergies No known drug allergies Medications Name Sig Start Date Stop Date Status Note LastModified by Organization Details LastModified Time atorvasta tin 40 mg tablet TAKE 1 TABLET BY MOUTH EVERY DAY active Not Available Not Available No t Available atorvasta tin 80 mg tablet TAKE 1 TABLET BY MOUTH EVERY DAY active Not Available Not Available No t Available atorvasta tin 20 mg tablet TAKE 1 TABLET BY MOUTH EVERY DAY 11/26 completed Not Available Not Available Not Available azithromy yumiko 250 mg tablet TAKE 2 TABLETS BY MOUTH TODAY, THEN TAKE 1 TABLET DAILY FOR 4 DAYS 11/26 completed Not Available Not Available Not Available benzonata te 200 mg capsule TAKE 1 CAPSULE BY MOUTH THREE TIMES A DAY NEEDED FOR COUGH 11/26 completed Not Available Not Available Not Available acetamino phen 120 mg-codein e 12 mg/5 mL oral solution TAKE 5 ML BY MOUTH EVERY 6 HOURS NEEDED FOR COUGH 11/26 completed Not Available Not Available Not Available metoprolo l succinate ER 50 mg tablet,ex tended release 24 hr TAKE 1 TABLET BY MOUTH EVERY DAY active Not Available Not Available No t Available hydrocodo ne 5 mg-acetam inophen 325 mg tablet TAKE 1 TO 2 TABLETS BY MOUTH EVERY 4 TO 6 HOURS NEEDED FOR PAIN FOR 7 DAYS (MAX 6 TABLETS/ DAY) active Not Available Not Available No t Available meloxicam 15 mg tablet TAKE 1 TABLET (15 MG TOTAL) BY MOUTH DAILY. active Not Available Not Available No t Available omeprazol e 40 mg capsule,d elayed release TAKE 1 CAPSULE BY MOUTH EVERY DAY NEEDS APPOINME NT FOR FURTHER REFILLS active Not Available Not Available No t Available tramadol 50 mg tablet TAKE 1 TABLET BY MOUTH EVERY 6 HOURS NEEDED FOR PAIN active Not Available Not Available No t Available amoxicill in 875 mg tablet 875 MG ORALLY EVERY 12 HOURS 02/11 completed Not Available Not Available Not Available simvastat in 5 mg tablet take 1 tablet by oral route every day in the evening 11/26 completed Prescrib ed Elsewher e: Yes Loca tion: Zeny edwards [facility] odify By: eligio reardon DateTime : 02/17/20 14 05:45:00 PM Not Available Not Available Not Available Cenestin 0.625 mg tablet take 1 tablet by oral route every day 10/01 completed Prescrib ed Elsewher e: No Locat ion: Zeny edwards [facility] odify By: michelle Presley r DateTime : 02/17/20 14 05:45:00 PM Not Available Not Available Not Available prednison e 50 mg tablet TAKE 1 TABLET BY MOUTH EVERY DAY 11/26 completed Not Available Not Available Not Available codeine 10 mg-guaife nesin 100 mg/5 mL oral liquid TAKE 5 ML BY MOUTH EVERY 4 TO 6 HOURS NEEDED FOR 10 DAYS 11/26 completed Not Available Not Available Not Available estradiol 0.5 mg tablet TAKE 1 TABLET BY MOUTH EVERY DAY active Not Available Not Available No t Available metoprolo l succinate ER 25 mg tablet,ex tended release 24 hr take 1 tablet by oral route every day 11/26 completed Prescrib ed Elsewher e: Yes Loca tion: Zeny edwards [facility] odify By: michelle Encounte r DateTime : 10/01/19 17 05:15:00 PM Not Available Not Available Not Available albuterol sulfate HFA 90 mcg/actua tion aerosol inhaler TAKE 1 PUFF BY MOUTH EVERY 4 HOURS NEEDED FOR SHORTNES S OF BREATH OR WHEEZING active Not Available Not Available No t Available Cenestin 0.3 mg tablet take 1 tablet by oral route every day 05/31 completed Prescrib ed Elsewher e: Yes Loca tion: Zeny edwards [facility] odify By: hayley dickens DateTime : 04/10/20 11 06:00:00 PM Not Available Not Available Not Available escitalop neri 10 mg tablet Take 1 tablet every day by oral route. 11/26 completed Not Available Not Available Not Available escitalop neri 20 mg tablet TAKE 1 TABLET BY MOUTH EVERY DAY active Not Available Not Available No t Available Premarin 0.3 mg tablet ONCE DAILY 02/02 completed Prescrib ed Elsewher e: No Locat ion: [facility] odify By: migel orozco DateTime : 01/14/20 11:23:39 AM Not Available Not Available Not Available Premarin 0.625 mg tablet TAKE 1 TABLET BY ORAL ROUTE EVERY DAY 10/01 completed Prescrib ed Elsewher e: No Locat ion: [facility] odify By: michelle walton DateTime : 05/15/20 16 08:49:25 AM Not Available Not Available Not Available atorvasta tin 11/26 completed Not Available Not Available Not Available aspirin active Not Available Not Avail able Not Available D3 Plus K2 Dots active Not Available Not Available Not Available B12 active Not Available Not Availa ble Not Available metoprolo l acharya-hydroc hlorothia z 11/26 completed Not Available Not Available Not Available Wixela Inhub 250 mcg-50 mcg/dose powder for inhalatio n INHALE 1 PUFF TWICE A DAY 02/11 completed Not Available Not Available Not Available ID NOW COVID-19 Test Kit TEST DIRECTED 11/26 completed Not Available Not Available Not Available BinaxNOW COVID-19 Ag Self Test kit Use as Directed on the Package 02/11 completed Not Available Not Available Not Available Vitals Date Recorded Body height Body mass index (BMI) Body weight Provider Name and Address Organization Details Last Updated DateTime 11/26/2021 152.4 cm 28.2 kg/m2 89434.74 g Monica EVANS - [facility] 11/26/2021 11:36:25 Date Recorded Systolic blood pressure Diastolic blood pressure Provider Name and Address Organization Details Last Updated DateTime 11/26/2021 124 mm[Hg] 82 mm[Hg] Emmanuelle Wallace, [facility]- [address], [place], [address], [facility] 11/26/2021 11:58:25 Date Recorded Body height Body mass index (BMI) Body weight Systolic blood pressure Diastolic blood pressure Provider Name and Address Organization Details Last Updated DateTime 02/11/2023 152.4 cm 27.1 kg/m2 85577.34 g 123 mm[Hg] 69 mm[Hg] Karen Carr [facility] 3 09:27:40 Date Recorded Body height Body mass index (BMI) Body weight Systolic blood pressure Diastolic blood pressure Provider Name and Address Organization Details Last Updated DateTime 06/28/2020 152.4 cm 26.8 kg/m2 69303.15 g 127 mm[Hg] 74 mm[Hg] Marie Dominguez [facility] 0 13:07:16 Social History Question Answer Notes LastModified by Organizat ion Details LastModified Time Tobacco Smoking Status Never Smoker Karen Carr null, [facility] 02/11/2023 09:28:00 What Is Your Level Of Alcohol Consumption? Occasional Information not available 02/11/2023 How Many Years Have You Consumed Alcohol? 3 Information not available 02/11/2023 Are You Blind Or Do You Have Difficulty Seeing? No Information n ot available 11/26/2021 What Is Your Level Of Caffeine Consumption? Moderate Information not available 11/26/2021 How Much Tobacco Do You Chew? None Information not available 02/11/2023 In The 14 Days Before Symptom Onset, Have You Had Close Contact With A Laboratory-confirm ed COVID-19 While That Case Was Ill? No Information n ot available 02/11/2023 In The 14 Days Before Symptom Onset, Have You Had Close Contact With A Person Who Is Under Investigation For COVID-19 While That Person Was Ill? No Information not available 02/11/2023 Have You Been To An Area Known To Be High Risk For COVID-19? No Information not available 02/11/2023 Are You Deaf Or Do You Have Serious Difficulty Hearing? No Information not available 11/26/2021 What Type Of Diet Are You Following? REGULAR Information n ot available 11/26/2021 What Is The Highest Grade Or Level Of School You Have Completed Or The Highest Degree You Have Received? [id number] Information not available 02/11/2023 Are There Any Guns Present In Your Home? No Information not available 02/11/2023 Do You Use Protection During Sex? No Information not available 02/11/2023 Do You Use Your Seat Belt Or Car Seat Routinely? Yes Information not available 11/26/2021 Do You Have Smoke And Carbon Monoxide Detectors In Your Home? Yes Information not available 11/26/2021 How Much Tobacco Do You Smoke? No Information not available 02/11/2023 Do You Feel Stressed (tense, Restless, Nervous, Or Anxious, Or Unable To Sleep At Night)? [id number] Information not available 11/26/2021 Do You Use Any Illicit Or Recreational Drugs? No Information not available 11/26/2021 Do You Use Sunscreen Routinely? Yes Information not available 11/26/2021 Sex: Unknown Functional Status Question Answer Note LastModified by Organizat ion Details LastModified Time Do you have difficulty walking or climbing stairs? No Information not available 02/11/2023 Are you able to walk? YESWOREST Information not available 11/26/2021 Are you able to care for yourself? Yes Information not available 02/11/2023 Do you have difficulty dressing or bathing? No Information not available 02/11/2023 What is your exercise level? Occasional Information not available 11/26/2021 Mental Status None recorded. Family History Relationship Description Onset Age of this Age Resolved Age Notes LastModified by Organization Details LastModified Time Father Diabetes mellitus Not available 2021 22:04:11 Medical History Condition Response Heart Problems N Other Y Breast Cancer N Blood Transfusion N Kidney or Bladder Problems N Thyroid Problems N Lung Disease N GI Problems N Breast Problem N Hematologic disorders N History of STI N Deep Vein Thrombosis N Diabetes N Ovarian Cancer N Pulmonary (TB, Asthma) N Hepatitis/Liver Disease N Arthritis Y Infertility N Acid Reflux (GERD) Y History of abnormal pap N Cancer N Eczema N Urinary Tract Infection N Stroke N Varicosities N Neurologic/Epilepsy N Trauma/Violence N Endometriosis N High Cholesterol Y Heart Disease N Headaches N Fibromyalgia N Hypertension Y Osteoporosis N Kidney Disease N Thrombophilias N Gynecological History Statement/Question Response Abnormal Pap N Date of Last Mammogram 09/18/2022 On BCP's at Conception? N N STIs/STDs N HPV Vaccine N Current Control Method Hysterectom y If Post Menopausal, Age at Menopause 89 0 Sexually Active? Y Date of DEXA bone scan 05/09/2015 Age of first menstrual cycle 14 Date of Last Pap Smear Sexual Problems? N Desired Control Method Sterilizati on LMP Unknown Y Obstetrics History GPAL:G 4 P 0 0 2 2 Type Value Spontaneous 2 Living 2 Total 4 Past Encounters Encounter ID Performer Location Encounter Start Date Encounter Closed Date Diagnosis/Indication Diagnosis SNOMED-CT Code Diagnosis ICD10 Code Diagnosis Note [id number] Emmanuelle Wallace [facility] [address],[facility] [address] 06/28/2020 12:53:41 06/28/2020 14:42:19 Menopausal symptom 16904941 N95.1 Dexa due next year at wellness visit 2020 She is feeling well on current HRT. We discussed in depth the risk/benef it ration based on age, health conditions , quality of life of staying on HRT at this time. Patient acknowledg es R/B ration; and We agreed to continue current Estradiol 0.5mg for this year. Will consider weaning off estradiol next year; will revisit this once returns for WWE in 2020. Counseled on the following: Females >10yrs past menopause (& age 60yo+) are generally not good candidates for starting (1st use) systemic HT. Decisions to continue systemic HT > a decade past menopause (or past age 60yo) requires balancing R/B's; & individual ized needs. Non-hormon al options may be more appropriat e for females >10yrs past menopause. RF sent x 1yr No further questions or concerns. Time spent in visit is a total of 15 mins with at least 50% of visit consisting of counseling and review of plan of care. Screening mammography 24 730853 Z12.31 [id number] Emmanuelle Wallace [facility] [address] [address] 11/26/2021 11:13:29 11/26/2021 12:03:50 Gynecologic examination 41735575 Z01.419 Take Calcium with Vitamin D 12-1500mg daily. Do monthly self breast exams. It is advised to get annual flu shot in the fall and she could obtain at [facility] or [facility] clinic. If you haven't received the Tdap vaccine in the last 10 years you should obtain one as well. Have mammogram yearly, bone density every 2-3 years and colonoscop y every 5-10 years depending on findings and history. Engage in daily exercise of low impact aerobic exercise 45-60 minutes 4-5 times weekly. Avoid tobacco and illicit drugs as well as using moderation with alcohol intake less than 1-2 8 oz beverages daily. This lifestyle behavior pattern will lead to less health conditions and longer life span. If BMI greater than 25 weight watchers or dietary consult advised. Questions have been answered. Patient appears to understand instructio ns, but if you have any further questions call or respond to this email Pap/hpv d/c unless otherwise indicated STD Screen declined Genetic Screen discussed Colon Screen cologuard per PCP Dexa Screen UTD per PCP Routine Labs UTD per PCPMammo ordered Menopausal symptom 15541 002 N95.1 She is feeling well on current HRT. We discussed in depth the risk/benef it ration based on age, health conditions , quality of life of staying on HRT at this time. Patient acknowledg es R/B ration; and We agreed to continue current Estradiol 0.5mg for this year. Will consider weaning off estradiol in th future but she is aware of the risks of continuing past age 60yo; will revisit this once returns for WWE in 2023. Counseled on the following: Females >10yrs past menopause (& age 60yo+) are generally not good candidates for starting (1st use) systemic HT. Decisions to continue systemic HT > a decade past menopause (or past age 60yo) requires balancing R/B's; & individual ized needs. Non-hormon al options may be more appropriat e for females >10yrs past menopause. RF sent x 1yr No further questions or concerns. [id number] Emmanuelle Wallace [facility] [address] [address] 02/11/2023 09:17:26 02/11/2023 09:55:35 Menopausal symptom 98329009 N95.1 She is feeling well on current HRT. We discussed in depth the risk/benef it ration based on age, health conditions , quality of life of staying on HRT at this time. Patient acknowledg es R/B ration; and We agreed to continue current Estradiol 0.5mg for this year. Will consider weaning off estradiol in th future but she is aware of the risks of continuing past age 60yo; will revisit this once returns for medication check/WWE in 2023. Counseled on the following: Females >10yrs past menopause (& age 60yo+) are generally not good candidates for starting (1st use) systemic HT. Decisions to continue systemic HT > a decade past menopause (or past age 60yo) requires balancing R/B's; & individual ized needs. Non-hormon al options may be more appropriat e for females >10yrs past menopause. RF sent x 1yr No further questions or concerns. Time spent in visit is a total of 15 mins with at least 50% of visit consisting of counseling and review of plan of care.Healt h Hx was reviewed and updated as reported in chart. Health Concerns Section Related Observation LastModified by Organization Detai ls LastModified Time None Recorded Concern Status LastModified by Organization Details LastModified Time None Recorded Advance Directives Directive None Recorded Payers Encounter Date Sequence Insurance Name Policy Number Policy Estrada Covered Member ID Estrada Member ID Guarantor Name 06/28/2020 1 [facility] (MEDICARE REPLACEMENT/A DVANTAGE - HMO) [id number] Radha Childress [id number] Radha Childress 11/26/2021 1 [facility] (MEDICARE REPLACEMENT/A DVANTAGE - HMO) [id number] Radha Childress [id number] Radha Childress 02/11/2023 1 [facility] (MEDICARE REPLACEMENT/A DVANTAGE - HMO) [id number] Radha Childress [id number] Radha Childress Notes Date Note Type Note Provider Name and Address Organization Details Recorded Time 06/28/2020 text/html Patient is a 69y o white female here today for yearly medication check of estradiol 0.5mg daily. She has Hx of full hysterectomy for non-cancer indications. 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 Dexa 2019 D/C Pap/HPV Monogamous >30yrs Colonoscopy UTD per PCP Emmanuel[facility] [address], [place], [address], [facility] 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[employer] Post-MenopausalRep orted bypatient.Menopaus al Symptoms:no menopausal symptoms; normal vaginal lubrication Vaginal Bleeding:history of menopause having occurred; no history of post menopausal bleeding Urinary Symptoms:no hematuria; no incontinence; no nocturia; no urinary frequency Vulva:no genital lesion; no vulvar atrophy Vagina:normal vaginal discharge; no vaginal atrophy Breast:no breast lump; no nipple discharge; no breast pain Sexual Complaints:no sexual complaints Psychological Symptoms:no depression; no anxiety Preventive Measures:encourage regular mammograms starting age 40; encourage self breast examination; encourage regular exercise; encourage no tobacco use; needs to schedule mammogram; history of recent colonoscopy Emmanuelle Wallace [facility] [address], [place], [address], [facility] 11/26/2021 11:59:43 02/11/2023 text/html Here today for yearly medication check of Estradiol 0.5mg. Emmanuelle Wallace [facility] [address], [place], [address], [facility] 02/11/2023 09:52:14 OBGyn Episode Ob Episode Information Episode Created Date Number of Fetuses Patient Bloodtype Patient rh Status Prepregnancy Weight lbs Domestic Partner Domestic Partner Phone Father Name Sales Engineer Account Manager Status 11/27/19 22 1 CLOSED Fetus Data First Name Last Name Admitted to NICU Weight (g) Sex Living Outcome Pediatric Complications Fetus ID Race Codes Race Delivery Type F [id number] Vaginal Delivery Aris Calculation Initial Arsi Date Initial Exam Date Initial Exam Provider Initial Ultrasound Date Last Menstrual Period Date Ultra Sound Weeks Gestation 0 Eighteen To Twenty Week Aris Update Ultra Sound Date Fundal Height At Umbil Quickening Date Ultra Sound Latest Weeks Gestation Final Aris Confirmed By Final Aris Confirmed Date Final Aris Date Ultra Sound Latest Days Gestation 0 0 Menstrual History Last Menstrual Date Menses Monthly On Bcp Conception Prior Menses Frequency Hcg Plus Date Menarche Onset Age Delivery Information Delivery Date Delivery Type Labor Anesthesia Weeks Gestation Incision Type Labor Labor Length Hrs Delivered By Post Complications Tubal Sterilization Discharge Date Comments 0 Discharge Information Feeding Method Contraceptive Method Maternal HG B and HCT Levels Ob Episode Information Episode Created Date Number of Fetuses Patient Bloodtype Patient rh Status Prepregnancy Weight lbs Domestic Partner Domestic Partner Phone Father Name Sales Engineer Account Manager Status 11/27/19 22 1 CLOSED Fetus Data First Name Last Name Admitted to NICU Weight (g) Sex Living Outcome Pediatric Complications Fetus ID Race Codes Race Delivery Type F [id number] Vaginal Delivery Aris Calculation Initial Aris Date Initial Exam Date Initial Exam Provider Initial Ultrasound Date Last Menstrual Period Date Ultra Sound Weeks Gestation 0 Eighteen To Twenty Week Aris Update Ultra Sound Date Fundal Height At Umbil Quickening Date Ultra Sound Latest Weeks Gestation Final Aris Confirmed By Final Aris Confirmed Date Final Aris Date Ultra Sound Latest Days Gestation 0 0 Menstrual History Last Menstrual Date Menses Monthly On Bcp Conception Prior Menses Frequency Hcg Plus Date Menarche Onset Age Delivery Information Delivery Date Delivery Type Labor Anesthesia Weeks Gestation Incision Type Labor Labor Length Hrs Delivered By Post Complications Tubal Sterilization Discharge Date Comments 7 Discharge Information Feeding Method Contraceptive Method Maternal HG B and HCT Levels Ob Episode Information Episode Created Date Number of Fetuses Patient Bloodtype Patient rh Status Prepregnancy Weight lbs Domestic Partner Domestic Partner Phone Father Name Sales Engineer Account Manager Status 11/27/19 22 1 CLOSED Fetus Data First Name Last Name Admitted to NICU Weight (g) Sex Living Outcome Pediatric Complications Fetus ID Race Codes Race Delivery Type , [place] [id number] Aris Calculation Initial Aris Date Initial Exam Date Initial Exam Provider Initial Ultrasound Date Last Menstrual Period Date Ultra Sound Weeks Gestation 0 Eighteen To Twenty Week Aris Update Ultra Sound Date Fundal Height At Umbil Quickening Date Ultra Sound Latest Weeks Gestation Final Aris Confirmed By Final Aris Confirmed Date Final Aris Date Ultra Sound Latest Days Gestation 0 0 Menstrual History Last Menstrual Date Menses Monthly On Bcp Conception Prior Menses Frequency Hcg Plus Date Menarche Onset Age Delivery Information Delivery Date Delivery Type Labor Anesthesia Weeks Gestation Incision Type Labor Labor Length Hrs Delivered By Post Complications Tubal Sterilization Discharge Date Comments 6 Discharge Information Feeding Method Contraceptive Method Maternal HG B and HCT Levels Ob Episode Information Episode Created Date Number of Fetuses Patient Bloodtype Patient rh Status Prepregnancy Weight lbs Domestic Partner Domestic Partner Phone Father Name Sales Engineer Account Manager Status 11/27/19 22 1 CLOSED Fetus Data First Name Last Name Admitted to NICU Weight (g) Sex Living Outcome Pediatric Complications Fetus ID Race Codes Race Delivery Type , [place] [id number] Aris Calculation Initial Aris Date Initial Exam Date Initial Exam Provider Initial Ultrasound Date Last Menstrual Period Date Ultra Sound Weeks Gestation 0 Eighteen To Twenty Week Aris Update Ultra Sound Date Fundal Height At Umbil Quickening Date Ultra Sound Latest Weeks Gestation Final Aris Confirmed By Final Aris Confirmed Date Final Aris Date Ultra Sound Latest Days Gestation 0 0 Menstrual History Last Menstrual Date Menses Monthly On Bcp Conception Prior Menses Frequency Hcg Plus Date Menarche Onset Age Delivery Information Delivery Date Delivery Type Labor Anesthesia Weeks Gestation Incision Type Labor Labor Length Hrs Delivered By Post Complications Tubal Sterilization Discharge Date Comments 9 Discharge Information Feeding Method Contraceptive Method Maternal HG B and HCT Levels
--- NOTE | 2024-09-13 19:19 | ECG_ITS ---
Test Date: 2024-09-13 19:21:24 Measurements Intervals [place] Rate: 51 P: 39 ND: 135 QRS: 88 QRSD: 114 T: 59 QT: 460 QTc: 426 Interpretive Statements SINUS BRADYCARDIA INTRAVENTRICULAR CONDUCTION DELAY BORDERLINE R WAVE PROGRESSION, ANTERIOR LEADS CONSIDER INFERIOR INFARCT, AGE INDETERMINATE BASELINE ARTIFACT- I, II, III, AVR, AVL, AVF, V1-V6 ABNORMAL ECG Compared to ECG 08/09/2024 10:24:13 HEART RATE HAS DECREASED Electronically Signed On 09-13-2024 20:18:02 AUTOMOBILE INSPECTOR by Dedrick Al D.O.
[2024-09-13 19:20] VITALS: BP 109/47; PULSE 58; RESP 18; TEMP 36.8; O2SAT 100
[2024-09-13 19:33] LABS: Basophils Percent Auto 0.1 % (0.2-1.2); Eosinophils Absolute Auto 0.1 K/mm3 (0-0.3); Eosinophils Percent Auto 0.5 % (0-4.4); Hematocrit 33.2 % (37.0-47.0); Immature Granulocyte Absolute 0.05 K/mm3 (0.00-0.031); Immature Granulocyte Percent A 0.5 % (0-0.5); Lymphocytes Absolute Auto 3.11 K/mm3 (0.9-3.2); Lymphocytes Percent Auto 30.6 % (18.3-44.2); Mean Corpuscular HGB Conc 33.1 g/dl (32-36); Mean Corpuscular Hemoglobin 33.2 pg (26-34); Mean Corpuscular Volume 100.3 fl (80-100); Mean Platelet Volume 9.6 fl (7.4-10.4); Monocytes Absolute Auto 0.9 K/mm3 (0.1-0.6); Monocytes Percent Auto 9.2 % (2.6-8.5); Neutrophils Percent Auto 59.1 % (45.5-73.1); Platelet Count Result 261 k/mm3 (150-375); Red Blood Count 3.31 M/mm3 (4.2-5.4); Red Cell Distribution Width 13.4 % (11.5-14.5); White Blood Count 10.2 K/mm3 (4.5-10.0)
[2024-09-13 19:46] LABS: Alanine Aminotransferase 26 U/L (6-35); Albumin Level 3.6 g/dL (3.5-5.1); Alkaline Phosphatase 65 U/L (38-126); Anion Gap 7 mmol/L (4-12); Aspartate Amino Transferase 30 U/L (14-36); Bilirubin,Total 0.7 mg/dL (0.2-1.3); Blood Urea Nitrogen 30 mg/dL (7-17); Carbon Dioxide 25 mmol/L (22-30); Chloride 104 mmol/L (98-107); Estimated CRCL calculation 25 ml/min; Estimated Glomerular Filt Rate 37; Glucose 119 mg/dL (65-110); Potassium 3.7 mmol/L (3.4-5.0); Sodium 136 mmol/L (137-145)
[2024-09-13 23:41] VITALS: BP 113/46; PULSE 13; RESP 18; O2SAT 100
[2024-09-14 02:10] VITALS: PULSE 56
[2024-09-14 02:13] VITALS: BP 140/62; PULSE 56; RESP 18; O2SAT 100
--- NOTE | 2024-09-14 02:18 | ED.SYNCOPE ---
HPI - Syncope General Chief Complaint: Syncope Stated Complaint: syncope, fall Time Seen by Provider: 09/14/24 02:10 Source: patient and family Limitations: no limitations History of Present Illness HPI narrative: Patient presents initially after reported syncope. Patient does state she fell after becoming lightheaded while making dinner but neither she nor believe she lost consciousness (he heard a thud and immediately ran into room and found her conscious). States she was stiff initially and not communicating but no witnessed seizure like activity. She has had a lot happen recently with knee surgery 3.5 weeks ago followed by flulike symptoms and sinus infection and for all of these reasons has been on antibiotics and prednisone as well as cough medicine with codeine and an inhaler. She has developed diarrhea. No blurred vision or diplopia. On 81mg ASA but no other anticoagulation. She hit her face and had a few episodes of emesis after. No history of heart failure. No chest pain or shortness of breath. Has a chronic history of an extra beat so intermittently experiences palpitations.On metoprolol. No history of afib. No preceding position changes, she had been standing for a bit. Related Data Home Medications ?Medication ?Instructions ?Recorded ?Confirmed ?Last Taken ?Type aspirin 81 mg tablet,delayed 81 mg PO DAILY 06/22/19 09/08/24 08/08/24 History release metoprolol succinate 50 mg 50 mg PO DAILY 06/22/19 09/08/24 08/16/24 History tablet,extended release 24 hr meloxicam 15 mg tablet 15 mg PO DIRECTED 12/13/22 09/08/24 08/08/24 History atorvastatin 80 mg tablet 80 mg PO QPM 11/05/23 09/08/24 08/15/24 History estradiol 0.5 mg tablet 0.5 mg PO DAILY 11/05/23 09/08/24 08/15/24 History Allergies Allergy/AdvReac Type Severity Reaction Status Date / Time No Known Allergies Allergy Verified 09/08/24 13:54 [facility] Past Medical History Medical History Acute right flank pain UTI (urinary tract infection), bacterial Surgical History Surgical History H/O lateral meniscus repair of left knee History of hysterectomy History of appendectomy Family History Family History Father Diabetes mellitus Social History Social History Smoking status: Never smoker Second hand tobacco smoke exposure: No Alcohol intake: current Alcohol use details: Occasionally Substance use: never Substance use type: does not use Do You Feel Safe in your Home?: Yes Lack of Transportation: No Lack of Food: Never True Current Housing: I Have Housing Concerned About Future Housing: No Difficulty Paying Gas/Electric Bills: No Difficulty Paying for Meds: No Currently Unemployed: No Education: Associate Degree Difficulty w/ Childcare or Family Care: No Living arrangements: with family Additional living arrangements comments: Occupation/Education: retired Gender identity (if verbalized by the patient): Female Spiritual care concerns: No Agree to blood products: Yes Exam Narrative: GENERAL: Well-appearing, well-nourished, and in no acute distress. HEAD: Normocephalic, atraumatic. EYES: Non injected, non icteric. Periorbital ecchymosis along the right where there is also a hematoma. Extraocular movements intact without nystagmus or entrapment. PERRL 4mm bilaterally. No APD. ENT: Nares clear, no rhinorrhea or epistaxis. Tacky mucous membranes. NECK: Supple. CHEST: Speaking in full sentences. No respiratory distress. HEART: Regular rate and rhythm/borderline liliane at times . ABDOMEN: Soft, nondistended. EXTREMITIES: Normal range of motion. No lower extremity edema. SKIN: Warm, dry, no rash. NEURO: No focal deficits. Alert and oriented x3. PSYCH: Normal mood and affect. Course Vital Signs Vital signs: Vital Signs Temperature 98.2 F 09/13/24 19:20 Pulse Rate 58 L 09/13/24 19:20 Respiratory Rate 18 09/13/24 19:20 Blood Pressure 109/47 L 09/13/24 19:20 Pulse Oximetry 100 09/13/24 19:20 Oxygen Delivery Room Air 09/13/24 19:20 Temperature 98.2 F 09/13/24 19:20 Pulse Rate 62 09/14/24 05:14 Respiratory Rate 18 09/14/24 05:09 Blood Pressure 128/52 L 09/14/24 05:14 Pulse Oximetry 98 09/14/24 05:09 Oxygen Delivery Room Air 09/13/24 19:20 MDM - Syncope MDM Narrative Medical decision making narrative: Patient presents after falling while becoming lightheaded making dinner. She and deny loss of of consciousness. Has been sick recently and on medications. In the emergency department she is afebrile with vital signs notable for mild bradycardia as well as slight hypotension with a diastolic blood pressure 47 and a mean arterial pressure of 68, resolved on repeat. Mild leukocytosis. She has a macrocytic anemia which is stable from previous. Baseline creatinine 1.0 it is 1.3 today suggesting acute kidney injury. 1 L IV fluids ordered. It does not sound as if patient actually had a syncopal episode given that there was no loss of consciousness. BNP is mildly elevated though not to a degree to suggest heart failure given the reference range of the assay for patient's age. She has a mildly low magnesium. Patient would like to go home. She had not been told that she may need to give a urine sample so she had given 1 prior to being roomed and was unable to provide 1 at this time. She is also unable to provide a stool sample and this also points to the likelihood that this is not felt to be C diff. Discharged with prescriptions for acetaminophen and NSAID. Advised follow up with PCP given her FRED for possible repeat lab testing. Given list of magnesium rich foods and encouraged hydration. Differential Diagnosis Differential diagnosis: Likely syncope due to orthostatic hypotension, vasovagal syncope, complete atrioventricular block, subarachnoid hemorrhage, dehydration and other (near syncope; medication side effect) Lab Data Attestation: I reviewed the patient's lab results. 09/13/24 19:28 09/13/24 19:28 Labs: Lab Results 09/13/24 09/14/24 Range/Units 19: 03:21 WBC 10.2 H (4.5-10.0) K/mm3 RBC 3.31 L (4.2-5.4) M/mm3 Hgb 11.0 L (12.0-15.0) g/dL Hct 33.2 L (37.0-47.0) % MCV 100.3 H (80-100) fl MCH 33.2 (26-34) pg MCHC 33.1 (32-36) g/dl RDW 13.4 (11.5-14.5) % Plt Count 261 (150-375) k/mm3 MPV 9.6 (7.4-10.4) fl Immature Gran % (Auto) 0.5 (0-0.5) % Neut % (Auto) 59.1 (45.5-73.1) % Lymph % (Auto) 30.6 (18.3-44.2) % [place] % (Auto) 9.2 H (2.6-8.5) % Eos % (Auto) 0.5 (0-4.4) % Baso % (Auto) 0.1 L (0.2-1.2) % Lymph # (Auto) 3.11 (0.9-3.2) K/mm3 [place] # (Auto) 0.9 H (0.1-0.6) K/mm3 Eos # (Auto) 0.1 (0-0.3) K/mm3 Baso # (Auto) 0.0 (0.0-0.1) K/mm3 Abs Immat Gran (auto) 0.05 H (0.00-0.031) K/mm3 Absolute Neuts (auto) 6.0 (1.3-6.7) K/mm3 Absolute Nucleated RBC 0.000 (0.0-0.012) K/mm3 Nucleated RBC % 0.0 (0.0-0.2) % D-Dimer 0.34 (<0.48) ug/mL Sodium 136 L (137-145) mmol/L Potassium 3.7 (3.4-5.0) mmol/L Chloride 104 (98-107) mmol/L Carbon Dioxide 25 (22-30) mmol/L Anion Gap 7 (4-12) mmol/L BUN 30 H (7-17) mg/dL Creatinine 1.38 H (0.7-1.0) mg/dL Estim Creat Clear Calc 25 ml/min Estimated GFR 37 L (59 - ) Glucose 119 H (65-110) mg/dL Calcium 9.0 (8.4-10.2) mg/dL Magnesium 1.5 L (1.6-2.3) mg/dL Total Bilirubin 0.7 (0.2-1.3) mg/dL AST 30 (14-36) U/L ALT 26 (6-35) U/L Alkaline Phosphatase 65 (38-126) U/L Troponin I < 0.012 (0.000-0.034) ng/mL NT-Pro-B Natriuret Pep 709 H (19.9-100) pg/mL Total Protein 6.0 L (6.3-8.2) g/dL Albumin 3.6 (3.5-5.1) g/dL Imaging Data Radiologist's impression: IMPRESSION: No focal infiltrate or effusion. Impression: No acute intracranial hemorrhage or suspicious mass effect. Inflammatory sinus disease Impression: Degenerative disease without acute fracture. ECG Data EKG #1: Attestation: I personally reviewed and interpreted this ECG as follows: ECG completion date: 09/13/24 ECG completion time: 19:21 Interpretation: Sinus bradycardia at a rate of 51 beats per minute. DC interval 135. QRS 114 QT/QTC 460/437. No sinus pauses. No T-wave inversions. No prolonged QTC. No dagger like Q-waves in lateral precordial leads. Discharge Plan Discharge Clinical Impression: Anemia, macrocytic, FRED (acute kidney injury), Hypomagnesemia, Near syncope, Dehydration, Traumatic periorbital ecchymosis of right eye Patient Disposition: Home, Self-Care Condition: Stable Instructions: Antibiotic Form, Dehydration (DC), Acute Kidney Injury (DC), Hypomagnesemia (ED), Near Syncope (ED), Anemia (ED), Ecchymosis (ED) Additional Instructions: Your magnesium level was somewhat low. As we discussed this is sometimes seen with diarrhea. Given magnesium supplementation can cause diarrhea, can consider food sources to replete. Examples include salmon, tofu, grace seeds, bananas, black beans, spinach, cashews/cashew butter, oats, peanuts, potatoes with skins on, brown rice, soy milk, quinoa, kidney beans, whole wheat bread, avocado, raisins, pumpkin seeds, beet greens, dried prunes, white beans, almonds, chickpeas, etc. You can apply an ice pack/ice intermittently to the bruise around her eye for 15-20 minutes a day 4 times a day for the 1st 2 days (not directly to the skin). Acetaminophen/Tylenol (maximum 4000 mg per day) is safe to take with NSAIDs (ibuprofen/Motrin) for pain relief. It does seem that you are dehydrated from the diarrhea that you have been having. We gave you 1 L IV fluids but it is very important that you maintain your hydration. Notify your primary care physician that you had signs of dehydration and an acute kidney injury as they may want you to get a repeat lab draw in the next several days to make sure there has been resolution/improvement. \ Return to the emergency department with any new or worsening symptoms. Patient Language: Prydeinig Prescriptions: New ibuprofen 600 mg tablet 600 mg PO TID PRN (Reason: pain) Qty: 30 0RF acetaminophen 500 mg capsule 1,000 mg PO Q6H PRN (Reason: pain) Qty: 30 0RF No Action metoprolol succinate 50 mg tablet extended release 24 hr 50 mg PO DAILY aspirin 81 mg tablet,delayed release (DR/EC) 81 mg PO DAILY Patient Comments: HOLDING 7 days prior meloxicam 15 mg tablet 15 mg PO DIRECTED Patient Comments: PT to HOLD 7 days prior atorvastatin 80 mg tablet 80 mg PO QPM estradiol 0.5 mg tablet 0.5 mg PO DAILY albuterol sulfate 90 mcg/actuation HFA aerosol inhaler 2 inh inhalation QID PRN (Reason: shortness of breath or wheezing) Qty: 8.5 2RF amoxicillin-pot clavulanate 875-125 mg tablet 1 tablet PO BID Qty: 20 0RF prednisone 50 mg tablet 50 mg PO DAILY Qty: 5 0RF hydrocodone-acetaminophen 5-325 mg tablet 1 - 2 tablet PO Q4-6H MDD 6 PRN (Reason: pain) 7 Days Qty: 30 0RF escitalopram oxalate 20 mg tablet 20 mg PO DAILY Qty: 90 1RF omeprazole 40 mg capsule,delayed release(DR/EC) 40 mg PO DAILY Qty: 90 0RF Rx Instructions: NEEDS APPOINMENT FOR FURTHER REFILLS codeine-guaifenesin 10-100 mg/5 mL liquid 5 ml PO Q6H PRN (Reason: cough) Qty: 120 1RF Follow-up/Referrals: Adela Zaman MD [Primary Care Provider] - Time of Disposition: 05:47
--- OUTSIDE RECORDS SUMMARY | 2024-09-14 03:14 | XMS_ITS | Clinical Summary ---
Author Organization [facility] Address [address] [place] [address] Care Team Providers Care Tape Transferrer Name Role Phone Adela Zaman MD Primary Care Provider + Markie Saul MD Unavailable [phone] Allergies No known active allergies Medications cholecalciferol [...] atrial tachycardia Coronary artery disease invo lving [place] coronary artery of [place] heart without angina pectoris 11/02/2015 Overview (11/08/2016): Coronary artery disease involving [place] coronary artery of [place] heart with other form of angina pectoris Ischemic chest pain ([facility]) 10/02/2015 Overview (11/07/2016): Ischemic chest pain Dyspnea [...] Department Care Team Description 07/16/2024 11:15 AM SUBGRADE ROLLER OPERATOR Office Visit [facility] Cardiology [address] [place] [address] Melisa Pascal MD Coronary artery disease involving [place] coronary artery of [place] heart without angina pectoris (Primary Dx); Palpitations; [...] on file Legal Sex Female 4:00 AM SUBGRADE ROLLER OPERATOR Gender Identity Female 12/29/2019 12:53 PM CDT Sexual Orientation Straight 12/29/2019 12 :53 PM CDT Obstetrics History Last Filed Vital Signs Vital Sign Reading Time Taken Comments Blood Pressure 134/60 07/16/2024 11:01 AM SUBGRADE ROLLER OPERATOR Pulse 59 07/16/2024 11:01 AM SUBGRADE ROLLER OPERATOR Temperature - - Respiratory Rate 16 10/16/2021 2:32 PM CDT Oxygen Saturation 99% 07/16/2024 11:01 AM SUBGRADE ROLLER OPERATOR Inhaled Oxygen Concentration - - Weight 64 kg (141 lb) 07/16/2024 11:01 AM SUBGRADE ROLLER OPERATOR Height 157.5 cm (5' 2 ) 07/16/2024 11:01 AM SUBGRADE ROLLER OPERATOR Body Mass Index 25.79 07/16/2024 11:01 AM SUBGRADE ROLLER OPERATOR Plan of Treatment Health Maintenance Due Date [...] 05/12/2024, , 05/26/2021, Additional history exists Insurance [facility] MDCR HMO REF [facility] MEDICARE Address: [address] [address] MEDICARE SOLUTIONS [facility] MEDICARE Address: [address] [address] MEDICARE [employer] [facility] MEDICARE Address: [facility] [address] [place] [address] Care Teams Tape Transferrer Relationship Specialty Start Date End Date Adela Zaman MD PCP - General 11/01/16 Markie Saul MD [address] [address] Referring Physician Orthopedic Surgery 07/16/24
--- OUTSIDE RECORDS SUMMARY | 2024-09-14 03:14 | XMS_ITS | Encounter Summary ---
Author Organization [facility] Address [address] [place] [address] Care Team Providers Care Media Sales Executive Name Role Phone Adela Zaman MD Primary Care Provider + Adela Zaman MD Primary Care Provider + Markie Saul MD Unavailable [phone] Encounter Details Date Type Department Care Team (Late st Contact Info) Description 10/18/2016 Orders Only [facility] ProviderKendra MD [address] [place] [id number] Social History Tobacco Use Types Packs/Day Years Used Date Smoking Tobacco: Never Alcohol Use Standard Drinks/Week Comments Yes 0 (1 standard drink = 0.6 oz pur e alcohol) Comments Unknown Sex and Gender Information Value Date Recorded Sex Assigned at Not on file Legal Sex Female 4:00 AM OVERLOCK OPERATOR Gender Identity Female 12/29/2019 12:53 PM [...] on filedocumented in this encounter Care Teams Media Sales Executive Relationship Specialty Start Date End Date Adela Zaman MD PCP - General 11/01/16 Adela Zamna MD PCP - General 09/23/16 10/31/16 Markie Saul MD [address] [address] Referring Physician Orthopedic Surgery 07/16/24 documented as of this encounter
--- OUTSIDE RECORDS SUMMARY | 2024-09-14 03:14 | XMS_ITS | Referral Summary ---
Author Organization [facility] [address] [place] [address] Care Team Providers Care Housekeeping Assistant Name Role Phone Adela Zaman MD Primary Care Provider + Markie Saul MD Unavailable [phone] Encounters Date Type Department Care Team Description 07/16/2024 11:15 AM PAPER REWINDER Office Visit [facility] Cardiology [address] [place] [address] Melisa Pascal MD Coronary artery disease involving [place] coronary artery of [place] heart without angina pectoris (Primary Dx); Palpitations; [...] atrial tachycardia Coronary artery disease invo lving [place] coronary artery of [place] heart without angina pectoris 11/02/2015 Overview (11/08/2016): Coronary artery disease involving [place] coronary artery of [place] heart with other form of angina pectoris [...] on file Legal Sex Female 4:00 AM PAPER REWINDER Gender Identity Female 12/29/2019 12:53 PM CDT Sexual Orientation Straight 12/29/2019 12 :53 PM CDT Last Filed Vital Signs Vital Sign Reading Time Taken Comments Blood Pressure 134/60 07/16/2024 11:01 AM PAPER REWINDER Pulse 59 07/16/2024 11:01 AM PAPER REWINDER Temperature - - Respiratory Rate 16 10/16/2021 2:32 PM CDT Oxygen Saturation 99% 07/16/2024 11:01 AM PAPER REWINDER Inhaled Oxygen Concentration - - Weight 64 kg (141 lb) 07/16/2024 11:01 AM PAPER REWINDER Height 157.5 cm (5' 2 ) 07/16/2024 11:01 AM PAPER REWINDER Body Mass Index 25.79 07/16/2024 11:01 AM PAPER REWINDER Plan of Treatment Not on file Insurance [facility] [employer] [facility] [facility] [facility] [employer] Address: [address] [address] [place] [address] [employer] [facility] [place] [employer] Address: [address] [address] [place] [address] [employer] [facility] [place] [employer] Address: [address] [address] [place] [address] Care Teams Housekeeping Assistant Relationship Specialty Start Date End Date Adela Zaman MD PCP - General 11/01/16 Markie Saul MD [address] [address] Referring Physician Orthopedic Surgery 07/16/24
[2024-09-14] MEDS: ACETAMINOPHEN 325 MG TABLET 650 MG PO (03:20)
[2024-09-14] MEDS: SODIUM CHLORIDE 0.9% IV 1,000 ML 999 ML IV CONT (03:20)
[2024-09-14 03:39] LABS: Magnesium 1.5 mg/dL (1.6-2.3)
[2024-09-14 03:49] LABS: D Dimer 0.34 ug/mL (<0.48)
[2024-09-14 03:51] LABS: NT Pro B Type Natriuretic Pept 709 pg/mL (19.9-100); Troponin I < 0.012 ng/mL (0.000-0.034)
[2024-09-14 05:09] VITALS: BP 116/59; PULSE 61; RESP 18; O2SAT 98
[2024-09-14 05:10] VITALS: BP 147/65; PULSE 57
[2024-09-14 05:13] VITALS: BP 147/62; PULSE 58
[2024-09-14 05:14] VITALS: BP 128/52; PULSE 62
== END 2024-09-14 06:04 | disposition home or self-care (01) ==
PROVIDERS: Emergency Provider Student in an Organized Health Care Education/Training Program; PCP Family Medicine
DX: R55 Syncope and collapse (principal); S00.11XA Contusion of right eyelid and periocular area, initial encounter; E86.0 Dehydration; N17.9 Acute kidney failure, unspecified; D53.9 Nutritional anemia, unspecified; E83.42 Hypomagnesemia; Z87.440 Personal history of urinary (tract) infections; Z90.710 Acquired absence of both cervix and uterus; Z79.82 Long term (current) use of aspirin; Z79.899 Other long term (current) drug therapy; R00.1 Bradycardia, unspecified; I45.9 Conduction disorder, unspecified; R94.31 Abnormal electrocardiogram [ECG] [EKG]; W18.39XA Other fall on same level, initial encounter
CPT/HCPCS: 36415; 70450; 70486; 71046; 72125; 80053; 83735; 83880; 84484; 85025; 85380; 93005; 96360; 99284; A9270; J7030

== ENCOUNTER 2024-11-24 12:30 | Outpatient (CLI) | payer MEDICARE, SELFPAY ==
--- NOTE | ~2024-11-24 | MM_ITS ---
EXAMINATION: MM screening andreea BI w brett HISTORY: Screening TECHNIQUE: Craniocaudal and mediolateral oblique 3-D tomosynthesis images were obtained and synthetic 2-D images were generated. CAD analysis was submitted and interpreted. COMPARISON: Comparison to multiple prior studies sequentially, with oldest reviewed study dated 08/25. BREAST PARENCHYMAL COMPOSITION: Not dense: There are scattered areas of fibroglandular density. FINDINGS: There is no evidence of suspicious mass, calcification, or architectural distortion to sugg est malignancy in either breast. There has been no suspicious interval change. IMPRESSION: 1. No mammographic evidence of malignancy. 2. Recommend routine screening mammography in one year. BI-RADS Category 1: Negative Reviewed, dictated and finalized at location A.
== END 2024-11-24 12:31 | disposition home or self-care (01) ==
PROVIDERS: PCP Obstetrics & Gynecology; Visit Provider Student in an Organized Health Care Education/Training Program
DX: Z12.31 Encounter for screening mammogram for malignant neoplasm of breast (principal)
CPT/HCPCS: 77063; 77067